=== PATIENT | female | born 1975 | race Two or more races ===

== ENCOUNTER 2017-12-12 14:39 | Emergency (ER) | payer OTHER ==
[~2017-12-12] VITALS: Ht 162.6 cm; Wt 70.3 kg
[2017-12-12 14:59] VITALS: BP 128/75
[2017-12-12] MEDS ORDERED: PHENAZOPYRIDINE HCL 100 MG TAB PO ONE (16:15)
[2017-12-12 16:39] LABS: Urine Bacteria FEW /hpf (None Seen); Urine Blood TRACE /uL (Negative); Urine Mucus FEW (None Seen); Urine Specific Gravity 1.005 (1.001-1.035); Urine WBC 178 /hpf (0 - 5); Urine WBC Clumps PRESENT /hpf (None Seen)
== END 2017-12-12 16:49 | disposition home or self-care (01) ==
LOC: ER 14:39
DX: N39.0 Urinary tract infection, site not specified (principal)
CPT/HCPCS: 81001; 81002

== ENCOUNTER 2018-08-11 09:46 | Emergency (ER) | payer OTHER ==
[~2018-08-11] VITALS: Ht 162.6 cm; Wt 70.3 kg
[2018-08-11 12:45] VITALS: BP 129/67
[2018-08-11 13:25] LABS: Urine Bacteria FEW /hpf (None Seen); Urine Blood 3+ /uL (Negative); Urine Mucus FEW (None Seen); Urine Specific Gravity 1.015 (1.001-1.035); Urine WBC 449 /hpf (0 - 5); Urine WBC Clumps PRESENT /hpf (None Seen)
== END 2018-08-11 14:39 | disposition home or self-care (01) ==
LOC: ER 09:46
DX: N39.0 Urinary tract infection, site not specified (principal); Z90.710 Acquired absence of both cervix and uterus
CPT/HCPCS: 81001; 81025

== ENCOUNTER 2019-01-24 21:53 | Emergency (ER) | payer SELFPAY ==
[~2019-01-24] VITALS: Ht 165.1 cm; Wt 70.3 kg
[2019-01-24 22:03] VITALS: BP 132/54
[2019-01-24 23:00] LABS: Basophils # (auto) 0 uL; Basophils % (auto) 0.4 % (0.0-2.0); Eosinophils # (auto) 0.1 uL; Eosinophils % (auto) 1.5 % (0.0-7.0); Hematocrit 42.5 % (36.0-46.0); Hemoglobin 13.9 g/dL (12.2-16.2); Lymphocytes # (auto) 2.5 uL; Lymphocytes % (auto) 27.3 % (10.0-50.0); Mean Corpuscular Hemoglobin 29.4 pg (28.0-32.0); Mean Corpuscular Hgb Conc. 32.6 g/dL (32.0-36.0); Mean Corpuscular Volume 90.2 fL (80.0-100.0); Monocytes # (auto) 0.8 uL; Monocytes % (auto) 8.5 % (0.0-12.0); Neutrophils # (auto) 5.8 uL; Neutrophils % (auto) 62.3 % (37.0-80.0); Nucleated Red Blood Cells % 0.1 %; Platelet Count (auto) 264 10^3/uL (140-450); Red Blood Cells 4.72 10^6/uL (4.0-5.20); Red Cell Distribution Width 15.8 % (11.8-14.3); White Blood Cell 9.2 10^3/uL (4.4-10.8)
[2019-01-24 23:22] LABS: Albumin 4.1 g/dL (3.4-5.0); BUN/Creatinine Ratio 19.5; Calcium 8.8 mg/dL (8.5-10.1); Potassium 3.8 mmol/L (3.5-5.1)
[2019-01-24 23:25] LABS: Bilirubin, Total 0.1 mg/dL (0.2-1.0); Total Protein 7.8 g/dL (6.4-8.2)
[2019-01-25] MEDS ORDERED: LACTULOSE 20Gm/30ML SOLN PO ONE (00:30)
== END 2019-01-25 01:21 | disposition home or self-care (01) ==
LOC: ER 21:53
DX: K59.00 Constipation, unspecified (principal); Z90.710 Acquired absence of both cervix and uterus
CPT/HCPCS: 36415; 74018; 80053; 85025

== ENCOUNTER 2019-05-31 02:01 | Emergency (ER) | payer MEDICAID ==
[~2019-05-31] VITALS: Ht 165.1 cm; Wt 70.3 kg
[2019-05-31] MEDS ORDERED: EPINEPHrine HCL 1 MG/1 ML AMP SC ONE (02:30)
[2019-05-31] MEDS ORDERED: methylPREDNISolone SOD SUCC 125 MG/2 ML VL IV ONE (02:30)
[2019-05-31] MEDS ORDERED: SODIUM CHLORIDE 0.9% 1,000 ML IV ONE (02:30)
[2019-05-31] MEDS ORDERED: diphenhdrAMINE HCL 50 MG/1 ML VL IV ONE (02:30)
[2019-05-31] MEDS ORDERED: FAMOTIDINE (10MG/ML) 2ML VL IV ONE (03:00)
[2019-05-31 05:28] VITALS: BP 111/51
== END 2019-05-31 05:35 | disposition home or self-care (01) ==
LOC: ER 02:01
DX: T78.40XA Allergy, unspecified, initial encounter (principal); T78.3XXA Angioneurotic edema, initial encounter; Z90.710 Acquired absence of both cervix and uterus; X58.XXXA Exposure to other specified factors, initial encounter
CPT/HCPCS: 96372; 96374; 96375; 99283; J0171; J1200; J2930; J3490; J7030

== ENCOUNTER 2020-12-30 11:21 | Emergency (ER) | payer MEDICAID, OTHER ==
[~2020-12-30] VITALS: Ht 162.6 cm; Wt 70.3 kg
[2020-12-30 12:08] VITALS: BP 124/57
== END 2020-12-30 12:57 | disposition home or self-care (01) ==
LOC: ER 11:21
DX: S16.1XXA Strain of muscle, fascia and tendon at neck level, initial encounter (principal); Z90.710 Acquired absence of both cervix and uterus; V43.62XA Car passenger injured in collision with other type car in traffic accident, initial encounter; Y93.89 Activity, other specified; Y92.488 Other paved roadways as the place of occurrence of the external cause; Y99.8 Other external cause status
CPT/HCPCS: 72040